=== PATIENT | female | born 1945 | race Caucasian/White ===

== ENCOUNTER 2017-07-22 12:46 | Outpatient (RCR) | payer MEDICARE, MEDICAID, SELFPAY ==
[2017-07-22 14:09] VITALS: BP 133/82; PULSE 115; RESP 18; TEMP 36.3; BMI 63.2
--- NOTE | 2017-07-22 15:39 | HP.PCM_ITS ---
(1) Morbid obesity with BMI of 60.0-69.9, adult Status: Chronic Current Visit: Yes Code(s): E66.01 - Morbid (severe) obesity due to excess calories; Z68.44 - Body mass index (BMI) 60.0-69.9, adult (2) Pressure ulcer of left calf Status: Chronic Current Visit: Yes Qualifiers: Pressure ulcer stage: stage 2 Qualified Code(s): L89.892 - Pressure ulcer of other site, stage 2 Code(s): L89.899 - Pressure ulcer of other site, unspecified stage (3) Pressure ulcer of left calf, stage 2 Status: Chronic Current Visit: Yes Code(s): L89.892 - Pressure ulcer of other site, stage 2 (4) Diabetes mellitus Status: Chronic Current Visit: No Qualifiers: Diabetes mellitus type: type 2 Code(s): E11.9 - Type 2 diabetes mellitus without complications (5) Atrial fibrillation Status: Chronic Current Visit: No Qualifiers: Atrial fibrillation type: chronic Qualified Code(s): I48.2 - Chronic atrial fibrillation Code(s): I48.91 - Unspecified atrial fibrillation (6) Immobility Status: Chronic Current Visit: Yes Code(s): Z74.09 - Other reduced mobility (7) Hypertension Status: Chronic Current Visit: No Qualifiers: Hypertension type: essential hypertension Qualified Code(s): I10 - Essential (primary) hypertension Code(s): I10 - Essential (primary) hypertension (8) History of DVT (deep vein thrombosis) Status: Chronic Current Visit: No Code(s): Z86.718 - Personal history of other venous thrombosis and embolism (9) Presence of IVC filter Status: Chronic Current Visit: No Code(s): Z95.828 - Presence of other vascular implants and grafts (10) Hyperlipidemia Status: Chronic Current Visit: No Code(s): E78.5 - Hyperlipidemia, unspecified (11) Dysphagia Status: Chronic Current Visit: No Code(s): R13.10 - Dysphagia, unspecified (12) Osteoarthritis Status: Chronic Current Visit: No Qualifiers: Osteoarthritis location: unspecified site Code(s): M19.90 - Unspecified osteoarthritis, unspecified site (13) Oxygen dependent Status: Chronic Current Visit: Yes Code(s): Z99.81 - Dependence on supplemental oxygen (14) History of GI bleed Status: Chronic Current Visit: No Code(s): Z87.19 - Personal history of other diseases of the digestive system (15) Chronic pain Status: Chronic Current Visit: Yes Code(s): G89.29 - Other chronic pain (16) History of CVA (cerebrovascular accident) Status: Chronic Current Visit: Yes Code(s): Z86.73 - Personal history of transient ischemic attack (TIA), and cerebral infarction without residual deficits (17) Hemiparesis affecting left side as late effect of stroke Status: Chronic Current Visit: Yes Code(s): I69.354 - Hemiplegia and hemiparesis following cerebral infarction affecting left non-dominant side (18) History of Clostridium difficile colitis Status: Chronic Current Visit: No Code(s): Z86.19 - Personal history of other infectious and parasitic diseases (19) Swelling of lower extremity Status: Chronic Current Visit: Yes Code(s): M79.89 - Other specified soft tissue disorders (20) Lymphedema Status: Chronic Current Visit: Yes Code(s): I89.0 - Lymphedema, not elsewhere classified History of Present Illness Date of Service: 07/22/17 Chief Complaint: Stage II pressure ulcerations of the left postero-lateral calf History of Wound: This is a 72-year-old morbidly obese diabetic female with multiple medical problems. She is a resident of [facility] in [place], [place]. She presents with 2 adjacent pressure ulcerations on the posterior lateral aspect of the left calf, which are said to have been present for approximately 2 weeks. The patient is nonambulatory. She spends most of her day in bed, primarily in a supine position. She is essentially immobile, and has difficulty even turning to her side to lay in a lateral position. Because of her morbid obesity, and her chronic pain symptoms, she cannot ambulate, and it is difficult for others to assist the patient in movement and mobility. As result, the patient spends a good part of her time in bed. It is said that she sleeps on a flat mattress at night. Also impairing the patient's mobility and functional status is the fact that she suffered a cerebrovascular accident on February 27, 2017. This resulted in a left-sided hemiparesis. A CT scan performed on June 25, 2017, reveals the presence of a old cortical infarct of the right MCA territory. Her other medical problems are detailed below. Past Medical History Past Medical History: Chronic Problems Morbid obesity with BMI of 60.0-69.9, adult (Chronic) Pressure ulcer of left calf (Chronic) Pressure ulcer of left calf, stage 2 (Chronic) Diabetes mellitus (Chronic) Atrial fibrillation (Chronic) Immobility (Chronic) Hypertension (Chronic) History of DVT (deep vein thrombosis) (Chronic) Presence of IVC filter (Chronic) Hyperlipidemia (Chronic) Dysphagia (Chronic) Osteoarthritis (Chronic) Oxygen dependent (Chronic) History of GI bleed (Chronic) Chronic pain (Chronic) History of CVA (cerebrovascular accident) (Chronic) Hemiparesis affecting left side as late effect of stroke (Chronic) History of Clostridium difficile colitis (Chronic) Swelling of lower extremity (Chronic) Lymphedema (Chronic) Past Medical History: The patient is morbidly obese, with a BMI of 63.2. She suffers from chronic pain. She is essentially immobile. She has a history of deep vein thrombosis in the lower extremity which occurred following a right total knee replacement in 2007. Which leg was involved in deep vein thrombosis is uncertain. An IVC filter was placed at that time, which remains in place currently. The patient suffers from atrial fibrillation, thought to be the cause of her cerebrovascular accident in February 2017. She has been on systemic anticoagulation therapy since that time. She also has a history of hypertension , pseudomembranous enterocolitis, hyperlipidemia, dysphagia, diabetes mellitus, osteoarthritis, morbid obesity, gastrointestinal bleeding, and oxygen dependence by nasal cannula. Surgical History: - - Patient has a history of right total knee replacement in 2007. She has a history of right carpal tunnel release. Bilateral cataract surgery has been performed. An IVC filter was placed in 2007, which remains in place. Allergies/Adverse Reactions: Allergies heparin Allergy (Verified 07/22/17 14:19) Other warfarin [From Coumadin] Allergy (Verified 07/22/17 14:19) Other Home Medications: Ambulatory Orders Medication Instructions Recorded Acetaminophen [Tylenol] 650 mg PO Q4H PRN PRN 07/22/17 Aspirin [Children's Aspirin] 81 mg NG DAILY 07/22/17 Fentanyl [Duragesic] 50 mcg TRANSDERM. Q72H 07/22/17 Fondaparinux Sodium [Arixtra] 2.5 mg SQ DAILY 07/22/17 Gabapentin [Neurontin] 100 mg PO TIDCM 07/22/17 Hydrocodone/Acetaminophen [[place] 1 each PO Q8H PRN PRN 07/22/17 5-325 Tablet] Linacolotide [Linzess] 145 mcg PO DAILY 07/22/17 Metoclopramide [Reglan] 10 mg PO TID 07/22/17 Metoprolol Tartrate [Lopressor 50 mg PO Q8 07/22/17 (Beta Rubio)] Ondansetron HCl [Zofran] 4 mg PO Q4H PRN PRN 07/22/17 Phenazopyridine HCl [Pyridium] 200 mg PO PRN PRN 07/22/17 Rosuvastatin Calcium [Crestor] 5 mg PO DAILY 07/22/17 Senna/Docusate Sodium [Senokot-S, 2 tablet PO DAILY 07/22/17 Holly-Colace] Sertraline HCl [Zoloft] 50 mg PO DAILY 07/22/17 - Family History Maternal - - The patient's parents are . However, she was adopted, and knows little of the medical history of her biological parents. Social History: The patient is . She is a former smoker, but does not currently smoke. She denies use of alcoholic beverages. She is retired from the [employer]. Lives: [facility] Smoking Status: Former smoker Alcohol: None Drugs: None Review of Systems Constitutional: Denies: Chills, Fever, Weight Change Eyes: Denies: Pain, Vision Change HEENT: Denies: Difficulty Hearing, Difficulty Swallowing, Sinus Congestion Cardiovascular: Denies: Chest Pain, Palpitations Respiratory: Denies: Cough, Shortness of Breath Gastrointestinal: Denies: Diarrhea, Nausea, Vomiting Genitourinary: Denies: Dysuria, Hematuria Endocrine: Denies: Heat/ Cold Intolerance, Polydipsia, Polyuria Hematologic/ Lymphatic: Denies: Easy Bruising, Easy Bleeding - Physical Exam Vital Signs Temp Pulse Resp BP 97.3 F L 115 H 18 133/82 H 07/22/17 14:09 07/22/17 14:09 07/22/17 14:09 07/22/17 14:09 General: Alert, Oriented x3, Cooperative, No apparent distress, Well developed, Well nourished, - - The patient is morbidly obese HEENT: Atraumatic, PERRLA, EOMI, Normocephalic Oral: Moist Mucosa, No Gingival or Mucosal Lesions/ Ulcerations Neck: No JVD, Negative Carotid Bruits, No Nodes, No Nuchal Rigidity, Trachea Midline Lungs: Clear to auscultation, Normal air movement, No rhonchi, No wheeze, No rales Cardiovascular: Regular rate, Regular Rhythm, Normal S1, Normal S2, No murmurs Abdomen: Soft, Non Tender, Non-Distended, Obese - The patient is morbidly obese Extremities: No clubbing, No cyanosis, No Calf Tenderness, - - Severe swelling, edema, and lymphedema is noted in both lower extremities. Two adjacent ulcerations are noted on the postero-lateral aspect of the left lower extremity. There appear to represent a stage II pressure ulceration, though examination is somewhat difficult due to the patient's extreme morbid obesity, pain inhibition, and inability to reposition herself. There is some frankly necrotic tissue noted at the base of 1 of the 2 ulcerations. There is no sign of infection or cellulitis. Ulcer dimensions are documented elsewhere. Wound Measurements and Assessment - Nurse 1 - General Ulcer Measurement Start: 07/22/17 13:10 Freq: Status: Active Protocol: Activity Type Activity Date Activity User E-Sign Co-Sign Detail Recorded Client Recorded Date Recorded By Document 07/22/17 14:09 [id number] 07/22/17 14:30 07/22/17 14:09 Wound Center Nurse 1 [Ulcer Assessment Protocol: WC.WD.LOC] #2 LEFT LATERAL LE INFERIOR -Combined with other wound No -Current Size (cm) - Length 3.5 -Current Size (cm) - Width 1.0 -Current Size (cm) - Depth 0.1 -Total Square Cm 3.50 -Date of Last Picture (Recall this 07/22/17 field) -Photo Taken Yes -Epithelialization None Present -Tunneling No -Undermining/Tunneling No -Circular Undermining No -Classification - Thickness Full Thickness without Exposed Support Structure -Exudate Amt Small (1-33%) -Exudate Type Serosanguineous -Wound Margin Fibrotic Scar, Thickened Scar -Granulation Amt Small (1-33%) -Granulation Quality [place] -Slough/Fibrin Yes -Necrosis Amt Large (67-100%) -Necrotic Tissue Type Adherent Slough -Structure Exposed Fascia Fat Layer Exposed -Texture (Holly-wound Skin Appearance) Localized Edema Scarring -Moisture (Holly-wound Skin Appearance No Abnormality ) -Color (Holly-wound Skin Appearance) Erythema Hemosiderin Staining -Temperature (Holly-wound Skin No Abnormality Appearance) (Pt Warm) -Tenderness on Palpation (Holly-wound No Skin Appearance) -Ulcer Cleansing Rinsed/ Irrigated with Saline -Foul Odor after Cleansing No -Anesthetic Used 4% Lidocaine Solution #1 LEFT LATERAL LE SUPERIOR -Combined with other wound No -Current Size (cm) - Length 1.8 -Current Size (cm) - Width 1.9 -Current Size (cm) - Depth 0.1 -Total Square Cm 3.42 -Date of Last Picture (Recall this 07/22/17 field) -Photo Taken Yes -Epithelialization None Present -Tunneling No -Undermining/Tunneling No -Circular Undermining No -Classification - Thickness Full Thickness without Exposed Support Structure -Exudate Amt Small (1-33%) -Exudate Type Serosanguineous -Wound Margin Fibrotic Scar, Thickened Scar -Granulation Amt Large (67-100%) -Granulation Quality [place] -Slough/Fibrin Yes -Necrosis Amt Small (1-33%) -Necrotic Tissue Type Adherent Slough -Structure Exposed Fascia Fat Layer Exposed -Texture (Holly-wound Skin Appearance) Localized Edema Scarring -Moisture (Holly-wound Skin Appearance No Abnormality ) -Color (Holly-wound Skin Appearance) Erythema Hemosiderin Staining -Temperature (Holly-wound Skin No Abnormality Appearance) (Pt Warm) -Tenderness on Palpation (Holly-wound No Skin Appearance) -Ulcer Cleansing Rinsed/ Irrigated with Saline -Foul Odor after Cleansing No -Anesthetic Used 4% Lidocaine Solution [Edema Assessment] -Lower Limb Edema Present Yes -Right Calf (cm) 79.0 -Right Ankle (cm) 35.3 -Left Calf (cm) 71.0 -Left Ankle (cm) 35.0 WC - Nurse 2 - General Ulcer CM Notes Start: 07/22/17 13:10 Freq: Status: Active Protocol: Activity Type Activity Date Activity User E-Sign Co-Sign Detail Recorded Client Recorded Date Recorded By Document 07/22/17 15:01 ANDI [id number] 07/22/17 15:25 ANDI 07/22/17 15:01 Wound Center Nurse 2 [Procedure/Treatment] #2 LEFT LATERAL LE INFERIOR -Time 15:01 -Correct Patient Yes -Correct Side, Site, Position Yes -Correct Procedure Yes -Procedure Performed No -Wound/Ulcer Outcome Not Healed #1 LEFT LATERAL LE SUPERIOR -Time 15:01 -Correct Patient Yes -Correct Side, Site, Position Yes -Correct Procedure No -Procedure Performed No -Wound/Ulcer Outcome Amputation -Ulcer Cleansing Rinsed/ Irrigated with Saline [See Physician Procedure note for Specifics] Neurological: Cranial nerves II-XII grossly intact, Neuro grossly intact Psych/Mental Status: Normal Affect, Appropriate, Alert and oriented to time, place, person, mood and affect Debridement Note Post-Debridement Measurements/Treatment WC - Nurse 2 - General Ulcer CM Notes Start: 07/22/17 13:10 Freq: Status: Active Protocol: Activity Type Activity Date Activity User E-Sign Co-Sign Detail Recorded Client Recorded Date Recorded By Document 07/22/17 15:01 ANDI [id number] 07/22/17 15:25 ANDI 07/22/17 15:01 Wound Center Nurse 2 #2 LEFT LATERAL LE INFERIOR -Time 15:01 -Correct Patient Yes -Correct Side, Site, Position Yes -Correct Procedure Yes -Procedure Performed No -Wound/Ulcer Outcome Not Healed #1 LEFT LATERAL LE SUPERIOR -Time 15:01 -Correct Patient Yes -Correct Side, Site, Position Yes -Correct Procedure No -Procedure Performed No -Wound/Ulcer Outcome Amputation -Ulcer Cleansing Rinsed/ Irrigated with Saline No debridement was completed today Assessment/Plan Active Problems Morbid obesity with BMI of 60.0-69.9, adult (Chronic) Pressure ulcer of left calf (Chronic) Pressure ulcer of left calf, stage 2 (Chronic) Immobility (Chronic) Oxygen dependent (Chronic) Chronic pain (Chronic) History of CVA (cerebrovascular accident) (Chronic) Hemiparesis affecting left side as late effect of stroke (Chronic) Swelling of lower extremity (Chronic) Lymphedema (Chronic) Assessment: This is a 32-year-old morbidly obese, diabetic female with multiple medical problems. She also has a history of cerebrovascular accident in February 2017, rendering her with a left sided hemiparesis. She also suffers from chronic pain. Her multiple medical problems render the patient essentially immobile, and confined to bed. She presents with a pressure ulceration to the postero-lateral aspect of the left lower extremity. Plan: We are to obtain a battery of diagnostic studies. This will include a venous duplex examination and determination of ankle?brachial indices bilaterally. Routine laboratory studies will be obtained, including a CBC, comprehensive metabolic profile, serum prealbumin, and hemoglobin A1c. These laboratory results will help to assess nutritional status and other factors related to wound healing potential. Offloading measures have been recommended. The patient is to be repositioned frequently. She is to avoid prolonged idle sitting, which will contribute to the swelling, edema, and lymphedema in the lower extremities. Weight loss has been recommended, but is probably not likely to occur given the patient's limitations. Physical therapy has been recommended to help prevent further deconditioning of the patient's physical status. We are to implement the use of collagenase Santyl topically to the pressure ulcerations on the left lower extremity. Patient will return in approximately 3-4 weeks for reassessment. It is anticipated that serial debridements may be implemented once the patient returns, and once additional information is known about the vascular status of the patient's lower extremity. The patient is accompanied by her daughter, who indicates that a wound doctor visits the nursing facility once weekly. We will attempt to collaborate with the retirement's medical staff to minimize the visits to our [facility], because significant transportation issues exists due to the patient's immobility and morbid obesity. Influenza vaccine was not administered today. Patient is not a smoker. Patient stands 5 feet 5 inches tall. She weighs approximately 380 pounds. Her BMI is 63.2, which places her in a class III category. Weight loss has been recommended. Patient has been advised to collaborate with her primary care physician in terms of weight loss options.
--- NOTE | 2017-08-02 12:57 | VDLE_ITS ---
Reason For Study: Ulcer LLE RIGHT LEFT GSV is normal. CFV is compressible, spontaneous, phasic, CFV is compressible, spontaneous, phasic, competent, and demonstrates normal competent and demonstrates normal augmentation. augmentation. FV is compressible, spontaneous, phasic, FV is compressible, spontaneous, phasic, competent and demonstrates normal competent and demonstrates normal augmentation. augmentation. PTV is compressible. PTV is compressible. Lt FV mid-distal, Lt PopV, Lt T/P Trunk, Lt Rt FV mid-distal, Rt PopV, Rt T/P Trunk, Rt PeroV, and Lt SSV are not visualized due to PeroV, Rt GSV from knee to mid calf, and Rt patient body habitus and patient was unable SSV are not visualized due to patient body to move leg habitus and patient was unable to move leg Hypoechoic, non vascular structure noted Lt Rt SFJ is Competent distal calf measuring 2.06cm x 5.08cm Rt GSV is Competent. Lt SFJ is Competent Procedure Exam performed in department. Lt GSV is Incompetent with reflux greater The study was technically limited. than 0.5sec and a diameter of 0.99cm x The study was technically difficult. 0.96cm in the thigh and 0.23cm x 0.26cm in The exam was of poor technical quality due the calf. to Patient body habitus. A preliminary report was called and/or faxed to [facility]. Interpretation Summary The common femoral veins, proximal femoral veins, and posterior tibial veins are patent and compressible bilaterally. The proximal deep veins are competent bilaterally. The following deep veins were not vsualized on either side due to the patient's body habitus and patient positioning factors: mid- and distal femoral vein, popliteal vein, tibio-peroneal trunk, and peroneal vein. Sapheno-femoral junctions are competent bilaterally. The right great saphenous vein is competent. The left great saphenous vein is incompetent. Small saphenous veins were not visualized on either side. A non-vascular, hypoechoic structure is noted in the left distal calf, measuring 2.06 cm x 5.08 cm. This may represent a seroma or hematoma. Clinical correlation is advised. Ordering Physician: Monroe Munoz Referring Physician: Chetan Thibodeaux Performed By: Siena Dumont RDCS, RVT
--- NOTE | 2017-08-05 09:08 | LEAS ---
Arterial Study - Arterial Study Arterial Study: This is a 72-year-old female with an ulceration on her left calf. The patient also suffers from morbid obesity, diabetes mellitus, atrial fibrillation, hypertension, hyperlipidemia, and lymphedema. She has a history of smoking. Suspecting the presence of atherosclerotic peripheral arterial occlusive disease, the patient was brought to the noninvasive vascular laboratory at this time for the purpose of bilateral noninvasive lower extremity arterial assessment. It should be noted that the patient was unable to tolerate blood pressure determination in the left leg and left arm. Doppler signal assessment was used to evaluate the pulses at ankle level bilaterally. The posterior tibial and dorsalis pedis pulses were triphasic bilaterally. Segmental limb pressures were obtained bilaterally. The right ankle pressure, as determined by dorsalis pedis pulse, could not be determined due to the noncompressibility of the vasculature. The right digital pressure was measured at 117 mmHg. The left ankle pressure was not determined due to the patient's inability to tolerate the administration of the blood pressure cuff. The left digital pressure was measured at 124 mmHg. Pulse-volume recordings were obtained bilaterally at ankle and digital levels. Waveform amplitudes appeared to be slightly diminished. The resting right ankle-brachial index could not be determined due to the noncompressibility of the vasculature. The resting left ankle-brachial index was not determined. The right digital-brachial index was calculated to be 0.97. The left digital-brachial index was calculated to be 1.02. Impression: Based upon the findings of this resting noninvasive lower extremity arterial study, there is no evidence of significant arterial occlusive disease in the lower extremities bilaterally. Triphasic waveforms are noted at ankle level bilaterally. Ankle-brachial indices could not be determined on either side. However, digital-brachial indices appear bilaterally normal, suggesting relatively normal arterial flow at digital level bilaterally. Clinical correlation is advised.
--- NOTE | 2017-08-05 09:11 | LEAS_ITS ---
Arterial Study - Arterial Study Arterial Study: This is a 72-year-old female with an ulceration on her left calf. The patient also suffers from morbid obesity, diabetes mellitus, atrial fibrillation, hypertension, hyperlipidemia, and lymphedema. She has a history of smoking. Suspecting the presence of atherosclerotic peripheral arterial occlusive disease , the patient was brought to the noninvasive vascular laboratory at this time for the purpose of bilateral noninvasive lower extremity arterial assessment. It should be noted that the patient was unable to tolerate blood pressure determination in the left leg and left arm. Doppler signal assessment was used to evaluate the pulses at ankle level bilaterally. The posterior tibial and dorsalis pedis pulses were triphasic bilaterally. Segmental limb pressures were obtained bilaterally. The right ankle pressure, as determined by dorsalis pedis pulse, could not be determined due to the noncompressibility of the vasculature. The right digital pressure was measured at 117 mmHg. The left ankle pressure was not determined due to the patient's inability to tolerate the administration of the blood pressure cuff. The left digital pressure was measured at 124 mmHg. Pulse-volume recordings were obtained bilaterally at ankle and digital levels. Waveform amplitudes appeared to be slightly diminished. The resting right ankle-brachial index could not be determined due to the noncompressibility of the vasculature. The resting left ankle-brachial index was not determined. The right digital-brachial index was calculated to be 0.97. The left digital- brachial index was calculated to be 1.02. Impression: Based upon the findings of this resting noninvasive lower extremity arterial study, there is no evidence of significant arterial occlusive disease in the lower extremities bilaterally. Triphasic waveforms are noted at ankle level bilaterally. Ankle-brachial indices could not be determined on either side. However, digital-brachial indices appear bilaterally normal, suggesting relatively normal arterial flow at digital level bilaterally. Clinical correlation is advised.
== END 2017-08-04 23:59 ==
LOC: WC 12:46
PROVIDERS: Family Provider Family Medicine; PCP Family Medicine; Visit Provider Surgery
DX: E11.622 Type 2 diabetes mellitus with other skin ulcer (principal); L89.892 Pressure ulcer of other site, stage 2; E66.01 Morbid (severe) obesity due to excess calories; I48.2 Chronic atrial fibrillation; I10 Essential (primary) hypertension; E78.5 Hyperlipidemia, unspecified; M19.90 Unspecified osteoarthritis, unspecified site; G89.29 Other chronic pain; I69.354 Hemiplegia and hemiparesis following cerebral infarction affecting left non-dominant side; I89.0 Lymphedema, not elsewhere classified; M79.89 Other specified soft tissue disorders; Z99.81 Dependence on supplemental oxygen; Z86.19 Personal history of other infectious and parasitic diseases; Z68.44 Body mass index [BMI] 60.0-69.9, adult; Z86.718 Personal history of other venous thrombosis and embolism; Z86.711 Personal history of pulmonary embolism; Z71.3 Dietary counseling and surveillance; Z74.01 Bed confinement status; Z87.891 Personal history of nicotine dependence; I73.9 Peripheral vascular disease, unspecified
CPT/HCPCS: 93922; 93970; 99213; G0463